=== PATIENT | male | born 1955 | race Caucasian/White ===

== ENCOUNTER → 2019-11-06 | Outpatient (CLI) | payer BC, MEDICARE ==
[~2019-11-06] MED LIST: HYDACE5325; MELOXICAM PO; OMEP20ER PO; TRAM50 PO
== END | disposition home or self-care (01) ==
LOC: LAB 19:35 → LAB SHORT 19:35
DX: J02.9 Acute pharyngitis, unspecified (principal)
CPT/HCPCS: 87081